=== PATIENT | male | born 1955 | race Caucasian/White ===

== ENCOUNTER → 2016-07-27 | Day surgery (SDC) | payer OTHER ==
[~2016-07-27] MED LIST: ATROPINE SULFATE 1% OPHT SOLN 2 ML BTL ONE; AZUL500T OR; DEXAMETHASONE SOD PHOS 4 MG/ML VIAL ONE; EPINEPHrine HCL (1:1000) 1 MG/ML VIAL ONE; FEXO180; FEXO180 OR; FLURBIPROFEN 0.03% OPHT SOLN 2.5 ML BTL ONE; HYALURONIDASE/LIDOCAINE/BUPIVACAINE 11 ML SYR TL ONE; LACTATED RINGER'S 1000 ML INJ 1,000 ML ONE; LEXA10TA PO; LOTE20TA3 PO; MELO7.5S PO; MIDAZOLAM HCL 2 MG/2 ML VIAL ONE; NEOMYCIN/POLYMYXIN/DEXAMETHASONE OPTH OINT 3.5 GM TUBE ONE; ONDANSETRON HCL 4 MG/2 ML VIAL IV PUSH ONE; OXYC5 PO; PHENYLEPHRINE HCL 2.5 % OPTH SOLN 15 ML BTL ONE; PROPOFOL 200 MG/20 ML AMP IV ONE; RALT400 PO; ROSU10 PO; SODIUM CHLORIDE 0.9% INJ 10 ML ONE; SULF500T35 PO; TETRACAINE 0.5% OPTH SOLN 15 ML BTL ONE; TRIAMCINOLONE ACETONIDE 40 MG/ML VIAL ONE; TROPICAMIDE 1% OPHT SOLN 15 ML BTL ONE; TRUVTAB2 PO; ceFAZolin INJ 1,000 MG VIAL ONE
--- NOTE | 2016-08-09 07:46 | TN ---
cc: VALERIANO MULLIGAN MD DATE OF SURGERY: 07/27/2016 DATE OF : 1955 PREOPERATIVE DIAGNOSIS Status post retinal detachment repair, left eye. POSTOPERATIVE DIAGNOSIS Status post retinal detachment repair, left eye. PROCEDURE Pars plana vitrectomy and silicone oil removal, left eye. ANESTHESIA LMA. SURGEON Lia COMPLICATIONS None. PROCEDURE IN DETAIL After informed consent was obtained, the patient was brought to the operating room, placed under general anesthesia with propofol, prepped and draped in the usual sterile fashion. A wire lid speculum was placed in the patient's left eye. 23-gauge vitrectomy cannulas were then placed in the lower temporal, superotemporal and superonasal quadrants 3 mm posterior to the corneal scleral limbus. An infusion cannula was placed lower temporally. The patient had a previous vitrectomy with some residual vitreous at the vitreous space which was excised using the vitreous cutter. Posteriorly either the internal limiting membrane or an epiretinal membrane was stained with ICG dye over the surface of the macula. This was then carefully peeled from around the macula hole. Careful indirect ophthalmoscopy with scleral depression was then performed. No peripheral breaks were noted. A complete air-fluid exchange was then performed. The three vitrectomy cannulas were then removed. Each site was closed with interrupted 7-0 Vicryl suture. Subconjunctival injections of dexamethasone and Ancef were placed. Atropine drops, Maxitrol ointment and patch and shield were then applied. The patient tolerated the procedure well. There were no complications. He awoke from general anesthesia in good condition. He will follow-up tomorrow in our [place] office. Valeriano Mulligan MD TAB/BT /11:47 AM /7:36 AM ALISSA
== END | disposition home or self-care (01) ==
LOC: ESDC 11:47
PROVIDERS: ATTEND Ophthalmology Retina Specialist
DX: H33.22 Serous retinal detachment, left eye (principal)
CPT/HCPCS: 00145; 67036; J0171; J0690; J1100; J2250; J2405; J3010; J7120; J3301